=== PATIENT | male | born 1935 | race Two or more races ===

== ENCOUNTER 2017-07-07 13:25 | Inpatient (IN) | payer MEDICAID, OTHER ==
[~2017-07-07] VITALS: Ht 165.1 cm; Wt 57.2 kg
--- NOTE | 2017-07-07 13:35 | NUR ---
PATIENT WAS SENT TO ED BY MD PINEDA JOE HIGH BLOOD SUGAR-- 545MG/DL UPON CHECKING. PATIENT IS AAO4. APPEARS IN NO APPARENT DISTRESS. RESPIRATION EVEN AND UNLABORED. SKIN IS WARM TO TOUCH AND NON DIAPHORETIC. AFEBRILE. VSS
[2017-07-07 13:52] LABS: BASOPHILS # (AUTO) 0.1 /CMM (0.0-0.2); BASOPHILS % (AUTO) 1.3 % (0.0-2.0); EOSINOPHILS # (AUTO) 0.1 /CMM (0.0-0.7); EOSINOPHILS % (AUTO) 1.1 % (0.0-6.0); HEMATOCRIT 34 % (39-51); HEMOGLOBIN 11.2 g/dL (13.5-17.5); LYMPHOCYTES # (AUTO) 1.7 /CMM (0.8-4.8); LYMPHOCYTES % (AUTO) 33.7 % (20.0-44.0); MEAN CORPUSCULAR HEMOGLOBIN 29 PG (26.0-33.0); MEAN CORPUSCULAR HGB CONC 33 g/dl (31.0-36.0); MEAN CORPUSCULAR VOLUME 88 fL (80-96); MONOCYTES # (AUTO) 0.4 /CMM (0.1-1.30); MONOCYTES % (AUTO) 7.6 % (2.0-12.0); NEUTROPHILS # (AUTO) 2.8 /CMM (1.8-8.9); NEUTROPHILS % (AUTO) 56.3 % (43.0-81.0); PLATELET COUNT (AUTO) 263 /CMM (150-450); RDW COEFFICIENT OF VARIATION 12.8 (11.5-15.0); RED BLOOD CELL COUNT(AUTO) 3.83 MIL/uL (4.5-6.0); WHITE BLOOD COUNT (AUTO) 5.1 K/uL (4.3-11.0)
--- NOTE | 2017-07-07 13:52 | NUR ---
IV ACCESSED TO [facility]. BLOOD SAMPLE SEBT TO LAB
--- NOTE | 2017-07-07 13:53 | NUR ---
EKG IN PROGRESS
--- NOTE | 2017-07-07 13:53 | NUR ---
STARTED IV HYDRATION
[2017-07-07] MEDS ORDERED: IV NS 0.9% 1,000 ML BAG IV ONE (14:00)
[2017-07-07] MEDS ORDERED: CHOL500052 PO (14:02)
[2017-07-07] MEDS ORDERED: ASPI-991 PO (14:02)
[2017-07-07] MEDS ORDERED: ACET-2605 PO (14:02)
[2017-07-07] MEDS ORDERED: MAGN400T6 PO (14:02)
[2017-07-07] MEDS ORDERED: GABA-534 PO (14:02)
[2017-07-07] MEDS ORDERED: OMEP20TA68 PO (14:02)
[2017-07-07] MEDS ORDERED: CYAN10009 PO (14:02)
[2017-07-07] MEDS ORDERED: MIRT30TA PO (14:02)
[2017-07-07] MEDS ORDERED: ATOR20TA PO (14:02)
[2017-07-07 14:08] LABS: ALANINE AMINOTRANSFERASE 18 U/L (12-78); ALKALINE PHOSPHATASE 156 U/L (46-116); ASPARTATE AMINOTRANSFERASE 16 U/L (15-37); BILIRUBIN,DIRECT 0.1 mg/dL (0.0-0.2); BILIRUBIN,TOTAL 0.3 mg/dL (0.2-1.0); CALCIUM, SERUM 8.8 mg/dL (8.5-10.1); CARBON DIOXIDE 31 mmol/L (21-32); CHLORIDE 98 mmol/L (98-107); CREATININE 1.9 mg/dL (0.6-1.3); POTASSIUM 4.4 mmol/L (3.5-5.1); SODIUM SERUM 136 mmol/L (136-145); TOTAL PROTEIN, SERUM 8.1 g/dL (6.4-8.2); UREA NITROGEN, BLOOD 33 mg/dL (7-18)
[2017-07-07 14:10] LABS: GLUCOSE 604 mg/dL (74-106)
[2017-07-07] MEDS ORDERED: INSULIN REGULAR, HUMAN 100 UNIT/ML 10 ML VIAL SQ STA (14:30)
[2017-07-07] MEDS ORDERED: INSULIN REGULAR, HUMAN 100 UNIT/ML 10 ML VIAL ONE (14:47)
[2017-07-07 14:56] LABS: APPEARANCE,URINE Clear (CLEAR); BILIRUBIN,URINE Negative (NEGATIVE); BLOOD, URINE Trace-intact Ery/uL (NEGATIVE); COLOR,URINE Yellow (YELLOW); KETONES,URINE Negative (NEGATIVE); LEUKOCYTE ESTERASE ,URINE Trace (NEGATIVE); NITRITE, URINE Negative (NEGATIVE); PROTEIN,URINE Negative (NEGATIVE); UGLUCOSE 500 MG/DL mg/dL (NEGATIVE); UROBILINOGEN,URINE 0.2 EU/dL (0.2)
[2017-07-07 15:03] LABS: BACTERIA,URINE Few /HPF (None Seen); RBC,URINE 0-3 /HPF (0-2); SQUAMOUS EPITHELIAL CELL,UR Few /HPF (None Seen)
--- NOTE | 2017-07-07 15:30 | NUR ---
PAGED DR SUNG
--- NOTE | 2017-07-07 15:49 | NUR ---
SPOKE WITH MD SUNG AND NOTIFIED HIM OF PATIENT;S BLOOD SUGAR 561MG/DL. PER MD HE WILL REVIEW PT'S LABS.MD GAVE ADMISSION ORDERS.
--- NOTE | 2017-07-07 16:31 | NUR ---
AWAITING FOR BED.
[2017-07-07 17:10] VITALS: BP 120/69
--- NOTE | 2017-07-07 17:11 | NUR ---
admit to the floor; accepted by Dr. Palma
--- NOTE | 2017-07-07 17:15 | NUR ---
TUBE CLOSING MACHINE OPERATOR: ADMISSION NOTE RECEIVED PT FROM ER. A/OX3 ADMITTED TO ROOM 328-2. CAME FROM HOME LIVING WITH OTHER PEOPLE. ADMITTED WITH DIAGNOSIS OF HYPERGLYCEMIA. HX OF DM, DEPRESSION, HTN, GERD. ONLY TAJIK SPEAKING. ON TELE MONITOR SR AT 70BPM. VS STABLE. BP120/69, PULSE 70, O2 100% ON ROOM AIR, RR20, TEMPERATURE 98.0. SKIN INTACT. IV ON R AC RUNNING NS AT 75ML/HR. SITE CLEAR AND PATENT. BG ON ADMISSION TO FLOOR WAS 246, 6 UNITS GIVEN PER SLIDING SCALE. MRSA SCREENING DONE. ON [facility] DIET. ALL ORDERS PLACED ORDERED PER MD. NO DISTRESS NOTED. NO PAIN NOTED. NO SOB NOTED. NO S/S OF HYPERGLYCEMIA NOTED. ORDERS TO CONTINUE HOME MEDICATIONS. ATE DINNER WITH NO N/V NOTED. RESTING COMFORTABLY IN BED. CALL LIGHT WITHIN REACH.
[2017-07-07] MEDS ORDERED: INSULIN DETEMIR 100 UNIT/ML CARTRIDGE SQ SCH (17:30)
[2017-07-07] MEDS ORDERED: IV NS 0.9% 1,000 ML BAG IV SCH (17:30)
[2017-07-07] MEDS ORDERED: DEXTROSE 50%-WATER 50 ML DISP.SYRIN IV PRN (17:30)
[2017-07-07 18:00] VITALS: BP 120/69
[2017-07-07] MEDS: IV NS 0.9% 1,000 ML IV PRN (18:17)
[2017-07-07] MEDS: INSULIN REGULAR, HUMAN 100 UNIT/ML 3 ML VIAL SQ PRN (18:26)
[2017-07-07] MEDS: BLOOD SUGAR DIAGNOSTIC 1 EACH STRIP VI SCH ×2 (18:27→22:36)
--- NOTE | 2017-07-07 18:45 | NUR ---
HONEY PRODUCER: CLOSING NOTE PT A/OX3. NO DISTRESS NOTED. NO PAIN NOTED. NO SOB NOTED. IV ON R AC RUNNING NS AT 75ML/HR. SITE CLEAR AND PATENT. NO REDNESS OR BLEEDING NOTED. ON CCHO DIET. NO N/V NOTED. CONTINENT AND ABLE TO AMBULATE WITH WALKER. RESTING COMFORTABLY IN BED. CALL LIGHT WITHIN REACH. NO CHANGES IN CONDITION NOTED.
--- NOTE | 2017-07-07 19:40 | NUR ---
RN OPENING NOTES RECEIVED REPORT FROM ASHLEIGH JAVED. FOUND Pt AWAKE RESTING IN BED. NO S/S OF ACUTE DISTRESS OR SOB NOTED. Pt IS A/OX3, LATVIAN SPEAKING, BUT CAN UNDERSTAND SOME [place]TH KOREAN. NO C/O PAIN AT THIS TIME. IV ACCESS ON RAC #20G, NS @75ML/HR. SAFETY MEASURES IN PLACE. BED LOW, LOCKED, HOB ELEVATED, SIDE RAILS UP, CALL LIGHT AND BEDSIDE WITHIN REACH. WILL CONTINUE TO MONITOR Pt THROUGHOUT THE NIGHT FOR SAFETY.
[2017-07-07 20:00] VITALS: BP 93/51
[2017-07-07] MEDS: INSULIN DETEMIR 100 UNIT/ML CARTRIDGE SQ SCH (21:00)
[2017-07-07] MEDS ORDERED: BLOOD SUGAR DIAGNOSTIC 1 EACH STRIP IN SCH (22:00)
[2017-07-07] MEDS: MIRTAZAPINE 15 MG TABLET PO SCH (22:40)
[2017-07-07] MEDS: GABAPENTIN 300 MG CAPSULE PO SCH (22:40)
[2017-07-07] MEDS: ATORVASTATIN 10 MG TABLET PO SCH (22:40)
--- NOTE | 2017-07-07 22:45 | NUR ---
ACCUCHECK BG 100. NO INSULIN COVERAGE NEEDED AT THIS TIME. HELD LEVEMIR OF 9UN.
[2017-07-08] VITALS: BP 99/53
[2017-07-08 04:00] VITALS: BP 114/59
--- NOTE | 2017-07-08 06:30 | NUR ---
ACCUCHECK BG 198. ADMINISTERED 3UN OF INSULIN PER SLIDING SCALE.
--- NOTE | 2017-07-08 06:55 | NUR ---
RN CLOSING NOTES NO SIGNIFICANT CHANGES NOTED DURING THE SHIFT. ALL NEEDS MET AND ATTENDED TO. NO S/S OF ACUTE DISTRESS OR SOB NOTED DURING THE NIGHT. SAFETY MEASURES IN PLACE. WILL ENDORSE TO DAYSHIFT RN FOR Pt's LAUREN. TELE READING SR 66.
[2017-07-08] MEDS: BLOOD SUGAR DIAGNOSTIC 1 EACH STRIP VI SCH ×4 (06:59→21:44)
[2017-07-08] MEDS: INSULIN REGULAR, HUMAN 100 UNIT/ML 3 ML VIAL SQ PRN ×2 (07:02→21:40)
[2017-07-08 07:18] VITALS: BP 114/59
--- NOTE | 2017-07-08 08:00 | NUR ---
GRAVURE PRESS OPERATOR NOTES PT IS SLEEPING COMFORTABLY IN BED. NO APPARENT S/S OF PAIN. TELE MONITORED SINUS RHYTHM 66. CALL LIGHT WITHIN REACH.
[2017-07-08] MEDS ORDERED: METFORMIN 500 MG TABLET PO SCH (09:00)
[2017-07-08] MEDS: MAGNESIUM OXIDE 400 MG TABLET PO SCH (09:00)
[2017-07-08] MEDS: ASPIRIN EC 81 MG TABLET.DR PO SCH (09:00)
[2017-07-08] MEDS: CYANOCOBALAMIN 500 MCG TABLET PO SCH (09:00)
[2017-07-08] MEDS: PANTOPRAZOLE 40 MG TABLET.DR PO SCH (09:01)
[2017-07-08] MEDS: INSULIN DETEMIR 100 UNIT/ML CARTRIDGE SQ SCH ×2 (09:03→21:38)
[2017-07-08 12:00] VITALS: BP 120/63
[2017-07-08] MEDS: *INSULIN REGULAR(HUMULIN R)HUM 100 UNIT/ML VIAL SQ PRN ×2 (12:10→18:13)
[2017-07-08 16:00] VITALS: BP 117/56
--- NOTE | 2017-07-08 18:54 | NUR ---
RN CLOSING NOTES PT RESTING IN BED. AMBULATES WELL WITH STEADY GAIT AROUND UNIT. BLOOD GLUCOSE 143 AT 1630. PT UNDERSTANDS PLAN OF CARE. PT TOLERATING IV FLUID WELL. NS 75ML/HR. PT COMFORTABLE AND CALM. NO APPARENT S/S OF PAIN. CALL LIGHT WITHIN REACH.
[2017-07-08 20:00] VITALS: BP 121/66
--- NOTE | 2017-07-08 20:00 | NUR ---
RECEIVED PATIENT IN BED, RESTING COMFORTABLY, VSS, AFEBRILE DENIES PAIN. CALL LIGHT WITHIN REACH, INSTRUCTED TO CALL FOR ASSISTANCE
--- NOTE | 2017-07-08 21:30 | NUR ---
ACCU CHECK IS 193 AT THIS TIME - COVERAGE GIVEN ORDERED. CONTINUE TO MONITOR
[2017-07-08] MEDS: IV NS 0.9% 1,000 ML IV PRN (21:33)
[2017-07-08] MEDS: GABAPENTIN 300 MG CAPSULE PO SCH (21:33)
[2017-07-08] MEDS: MIRTAZAPINE 15 MG TABLET PO SCH (21:34)
[2017-07-08] MEDS: ATORVASTATIN 10 MG TABLET PO SCH (21:34)
--- NOTE | 2017-07-08 23:25 | NUR ---
MS/BASIN FINISH OPERATOR TIG WELDER; RECEIVED PT 'S REPORT FROM THE RNJOSIANE FOR CONTINUITY OF CARE. AT THIS TIME PT IN BED SLEEPING. BREATHING NON LABORED AND EVEN. IVF ON PROGRESS. BED ON LOWER POSITION AND LOCKED FOR SAFETY. SIDE RAILS ARE UP FOR SAFETY. WILL CONTINUE TO MONITOR. CALL LIGHT WITHIN REACH. WILL CONTINUE TO MONITOR.
--- NOTE | 2017-07-09 06:00 | NUR ---
MS/REPAIRER SCREEN CRUSHER; BS 90 NO COVERAGE.
[2017-07-09] MEDS: BLOOD SUGAR DIAGNOSTIC 1 EACH STRIP VI SCH ×4 (06:05→21:21)
--- NOTE | 2017-07-09 06:31 | NUR ---
MS/CLINICAL REIMBURSEMENT SPECIALIST; SLEPT AT GOOD INTERVALS LAST NIGHT. DENIES PAIN. BREATHING NON LABORED. IIVF ON PROGRESS. WILL ENDORSE TO THE DAY SHIFT NURSE.
[2017-07-09 07:23] LABS: CALCIUM, SERUM 8.8 mg/dL (8.5-10.1); CARBON DIOXIDE 26 mmol/L (21-32); CHLORIDE 107 mmol/L (98-107); CREATININE 1.5 mg/dL (0.6-1.3); GLUCOSE 92 mg/dL (74-106); POTASSIUM 3.6 mmol/L (3.5-5.1); SODIUM SERUM 142 mmol/L (136-145); UREA NITROGEN, BLOOD 28 mg/dL (7-18)
--- NOTE | 2017-07-09 07:30 | NUR ---
MS RN AM NOTES PT IN BED, ASLEEP, EASILY AWAKEN TO NAME AND TOUCH, AO X 3, CYMRAES SPEAKING, ON RA, NOT IN ANY DISTRESS, RTAC G20 WITH NS AT 75 ML/HR. SITE CLEAR. DENIES PAIN, AMBULATES WITH ASSIST.BED ON LOWER POSITION AND LOCKED FOR SAFETY. SIDE RAILS ARE UP FOR SAFETY. CALL LIGHT WITHIN REACH. WILL CONTINUE TO MONITOR.
[2017-07-09 08:00] VITALS: BP_SYST 128; BP_SYST 138; BP_DIAS 68
[2017-07-09] MEDS: PANTOPRAZOLE 40 MG TABLET.DR PO SCH (09:24)
[2017-07-09] MEDS: MAGNESIUM OXIDE 400 MG TABLET PO SCH (09:25)
[2017-07-09] MEDS: CYANOCOBALAMIN 500 MCG TABLET PO SCH (09:25)
[2017-07-09] MEDS: ASPIRIN EC 81 MG TABLET.DR PO SCH (09:25)
[2017-07-09] MEDS: INSULIN DETEMIR 100 UNIT/ML CARTRIDGE SQ SCH ×2 (09:28→21:20)
--- NOTE | 2017-07-09 09:30 | NUR ---
MS RN NOTES ADMINISTERED DUE MEDS.
--- NOTE | 2017-07-09 11:55 | NUR ---
MS RN NOTES ACCUCHECK. BS 247 MG/DL. ADMINISTERED 9 UNITS HUM R PER SLIDING SCALE.
[2017-07-09] MEDS: INSULIN REGULAR, HUMAN 100 UNIT/ML 3 ML VIAL SQ PRN (11:57)
[2017-07-09 16:00] VITALS: BP 130/70
--- NOTE | 2017-07-09 17:37 | NUR ---
MS RN NOTES ACCUCHECK. BS 92 MG/DL. NO INSULIN COVERAGE GIVEN AT THIS TIME.
[2017-07-09] MEDS: IV NS 0.9% 1,000 ML IV PRN (17:43)
[2017-07-09 18:00] VITALS: BP 130/70
--- NOTE | 2017-07-09 18:37 | NUR ---
MS RN AM NOTES PT IN BED, RESTING COMFORTABLY, AO X 3, NEPALI SPEAKING, ON RA, NOT IN ANY DISTRESS, RT AC G20 WITH NS AT 75 ML/HR. SITE CLEAR. DENIES PAIN, AMBULATES WITH ASSIST.BED ON LOWER POSITION AND LOCKED FOR SAFETY. SIDE RAILS ARE UP FOR SAFETY. CALL LIGHT WITHIN REACH. PM CARE DONE. ALL NEEDS MET. NO OTHER SIGNIFICANT CHANGE IN CONDITION. WILL ENDORSE TO NEXT SHIFT FOR LAUREN. SEEN BY DR. SUNG EARLIER. NO NEW ORDERS.
[2017-07-09 20:00] VITALS: BP 131/72
--- NOTE | 2017-07-09 20:00 | NUR ---
MS RN NOTES RECEIVED PATIENT RESTING IN BED, DENIES PAIN. NO ACUTE DISTRESS, ON RA, NO SOB. AMBULATORY WITH WALKER TOLERATED. MALTESE SPEAKING. A & O X 3. IV ACCESS TO RAC, INTACT PATENT. NO S/S OF INFECTION NOTED AT IV SITE. CALL LIGHT WITHIN REACH. BED IN LOW LOCKED POSITION. NO S/S OF HYPERGLYCEMIA NOTED. WILL CONTINUE TO MONITOR.
[2017-07-09] MEDS: ATORVASTATIN 10 MG TABLET PO SCH (21:18)
[2017-07-09] MEDS: MIRTAZAPINE 15 MG TABLET PO SCH (21:18)
[2017-07-09] MEDS: GABAPENTIN 300 MG CAPSULE PO SCH (21:18)
[2017-07-09] MEDS: *INSULIN REGULAR(HUMULIN R)HUM 100 UNIT/ML VIAL SQ PRN (21:22)
--- NOTE | 2017-07-10 01:15 | NUR ---
MS RN NOTES PATIENT SLEEPING COMFORTABLY IN BED IN [place]I [place] POSITION. NS IV RUNNING AT 75 ML/HR. NO LAUREN NOTED.
[2017-07-10 04:00] VITALS: BP 137/63
--- NOTE | 2017-07-10 06:15 | NUR ---
MS RN NOTES PATIENT SLEPT WELL AT NIGHT WITHOUT ANY COMPLICATIONS. NO C/O PAIN, NO DISTRESS/DISCOMFORT NOTED. NO EPISODE OF HYPERGLYCEMIA NOTED. NS RUNNING AT 75 ML/HR. IV SITE TO RAC INTACT & PATENT. AMBULATED TO THE RESTROOM WITH 3WW TOLERATED. ALL NEEDS MET. BED IN LOW LOCKED POSITION. CALL LIGHT WITHIN REACH. WILL ENDORSE TO AM SHIFT.
[2017-07-10] MEDS: BLOOD SUGAR DIAGNOSTIC 1 EACH STRIP VI SCH ×4 (07:49→21:15)
[2017-07-10 08:00] VITALS: BP 139/77
--- NOTE | 2017-07-10 08:00 | NUR ---
RN MS OPENING NOTES RECEIVED PATIENT IN STABLE CONDITION. PATIENT IS IN NO APPARENT DISTRESS. ALERT AND ORIENTED X3. BEDSIDE RAILS ARE UP X2. BED IS LOCKED AND LOWERED. IV ON RIGHT AC INTACT AND PATENT. WILL CONTINUE TO MONITOR.
[2017-07-10] MEDS: CYANOCOBALAMIN 500 MCG TABLET PO SCH (08:36)
[2017-07-10] MEDS: LINAGLIPTIN 5 MG TABLET PO SCH (08:36)
[2017-07-10] MEDS: ASPIRIN EC 81 MG TABLET.DR PO SCH (08:36)
[2017-07-10] MEDS: PANTOPRAZOLE 40 MG TABLET.DR PO SCH (08:37)
[2017-07-10] MEDS: MAGNESIUM OXIDE 400 MG TABLET PO SCH (08:37)
[2017-07-10] MEDS: INSULIN DETEMIR 100 UNIT/ML CARTRIDGE SQ SCH ×2 (08:41→21:12)
[2017-07-10] MEDS: INSULIN REGULAR, HUMAN 100 UNIT/ML 3 ML VIAL SQ PRN (12:09)
[2017-07-10 16:00] VITALS: BP 143/72
[2017-07-10] MEDS: *INSULIN REGULAR(HUMULIN R)HUM 100 UNIT/ML VIAL SQ PRN ×2 (17:46→21:14)
--- NOTE | 2017-07-10 18:29 | NUR ---
MS RN CLOSING NOTES PT IS RESTING IN BED. PT IS ALERT AND ORIENTED. NO DISTRESS NOTED. BEDSIDE RAILS ARE UP X2. BED IS LOCKED AND LOWERED. WILL ENDORSE CARE TO WIG STYLIST NURSE FOR LAUREN.
--- NOTE | 2017-07-10 19:50 | NUR ---
RN INITIAL NOTES: RECEIVED REPORT FROM BRYANT AVINA PT IN BED, AWAKE, A/O X3 CENTRAL AFRICAN SPEAKING, ON TRA RESPIRATION EVEN AND UNLABORED DENIES ANY PAIN AT THIS TIME. PT REFUSED SCD, RIGHT AC IV ACCES PATENT AND FLUSHING WELL, ON HL. SAFETY PRECAUTIONS FOR FALL INITIATED CALL LIGHT IN REACH, WILL CONTINUE TO MONITOR
--- NOTE | 2017-07-10 19:55 | NUR ---
RN NOTES: PER RN REPORT PT FOR DC BUT STILL AWAITING FOR DR SUNG'S RESPONSE IF OKAY TO BE DC TONIGHT, AMBULANCE ON WILL CALL.
[2017-07-10 20:00] VITALS: BP 115/64
[2017-07-10] MEDS: ACETAMINOPHEN ES 500 MG TABLET PO PRN (20:17)
--- NOTE | 2017-07-10 20:17 | NUR ---
PRN TYLENOL: PT REQUESTED PAIN MEDICINE FOR LEG PAIN 12/12, PRN TYLENOL ES 500 MG TAB PO ADMINISTERED TO THE PT AT THIS TIME. WILL CONTINUE TO MONITOR AND REASSESS
[2017-07-10] MEDS: ATORVASTATIN 10 MG TABLET PO SCH (21:15)
[2017-07-10] MEDS: GABAPENTIN 300 MG CAPSULE PO SCH (21:15)
--- NOTE | 2017-07-10 21:16 | NUR ---
ACCU CHECK: BLOOD SUGAR CHECKED AND REVEAL 151, 2UNITS OF INSULIN GIVEN PER SLIDING SCALE
[2017-07-10] MEDS: MIRTAZAPINE 15 MG TABLET PO SCH (21:23)
--- NOTE | 2017-07-10 22:30 | NUR ---
RN NOTES: PER DYEING MACHINE BACK TENDER MARQUEZ, PT'S DC GOT CANCELLED BECAUSE [facility] CANCELLED PT'S ACCEPTANCE FOR FACILITY
[2017-07-11] MEDS: BLOOD SUGAR DIAGNOSTIC 1 EACH STRIP VI SCH ×4 (06:18→21:41)
[2017-07-11] MEDS: INSULIN REGULAR, HUMAN 100 UNIT/ML 3 ML VIAL SQ PRN ×2 (06:19→13:24)
--- NOTE | 2017-07-11 06:19 | NUR ---
ACCU CHECK: BLOOD SUGAR CHECKED AND REVEAL 94, NO INSULIN COVERAGE GIVEN PER SLIDING SCALE, WILL MONITOR PT FOR ANY S/S OF HYPOGLYCEMIA OR HYPERGLYCEMIA
--- NOTE | 2017-07-11 06:48 | NUR ---
RN CLOSING NOTES: PT IN BED, AWAKE, REMAINS A/O X3, ON RA RESPIRATION EVEN AND UNLABORED, RIGHT AC IV ACCESS REMAINS PATENT AND FLUSHING WELL, ON HL. FOR POSSIBLE DC, AWAITING PLACEMENT. VS REMAINS STABLE,NEEDS ATTENDED.SAFETY PRECAUTIONS FOR FALL REMAINS ENGAGED, CALL LIGHT IN REACH, WILL ENDORSE TO DAY RN FOR LAUREN.
--- NOTE | 2017-07-11 07:45 | NUR ---
MS/RN OPENING NOTE PATIENT RECEIVED IN BED IN STABLE CONDITION. A/O X 3. ETHIOPIAN SPEAKING. NO SIGNS OF ACUTE DISTRESS. NO COMPLAIN OF PAIN OR DISCOMFORT. ALL NEEDS ATTENDED TO AT THIS TIME. CALL LIGHT WITHIN REACH. WILL CONTINUE TO MONITOR TO ENSURE SAFETY.
[2017-07-11 08:00] VITALS: BP 127/59
[2017-07-11] MEDS: MAGNESIUM OXIDE 400 MG TABLET PO SCH (08:36)
[2017-07-11] MEDS: ASPIRIN EC 81 MG TABLET.DR PO SCH (08:36)
[2017-07-11] MEDS: CYANOCOBALAMIN 500 MCG TABLET PO SCH (08:37)
[2017-07-11] MEDS: ERGOCALCIFEROL (VITAMIN D 2) 50,000 UNIT CAPSULE PO SCH ×2 (08:37→08:47)
[2017-07-11] MEDS: LINAGLIPTIN 5 MG TABLET PO SCH (08:37)
[2017-07-11] MEDS: PANTOPRAZOLE 40 MG TABLET.DR PO SCH (08:37)
[2017-07-11] MEDS: INSULIN DETEMIR 100 UNIT/ML CARTRIDGE SQ SCH ×2 (08:38→21:37)
--- NOTE | 2017-07-11 15:00 | NUR ---
MS/RN SEEN BY DR SUNG PATIENT SEEN BY DR SUNG WITH NO ORDERS AT THIS TIME.
[2017-07-11 16:00] VITALS: BP 156/73
--- NOTE | 2017-07-11 18:05 | NUR ---
MS/RN CLOSING NOTE PATIENT IN BED IN STABLE CONDITION. A/O X 3. NO SIGNS OF ACUTE DISTRESS. NO COMPLAIN OF PAIN OR DISCOMFORT. ALL NEEDS ATTENDED TO. CALL LIGHT WITHIN REACH. WILL ENDORSE TO NEXT SHIFT FOR CONTINUITY OF CARE.
--- NOTE | 2017-07-11 19:30 | NUR ---
RN NOTES RECEIVED PATIENT IN BED AWAKE, AO X 3, ABLE TO MAKE NEEDS KNOWN. NO ACUTE DISTRESS NOTED; DENIES ANY PAIN AT THIS TIME. NO SYMPTOMS OF HYPER/HYPOGLYCEMIA. IV SITE PATENT, INTACT; FLUSHED. SAFETY REMINDERS GIVEN. ON LOW BED WITH BILATERAL UPPER SIDE RAILS UP. CALL LIGHT WITHIN EASY REACH. WILL CONTINUE TO MONITOR.
[2017-07-11 20:00] VITALS: BP 140/58
[2017-07-11] MEDS: GABAPENTIN 300 MG CAPSULE PO SCH (21:40)
[2017-07-11] MEDS: MIRTAZAPINE 15 MG TABLET PO SCH (21:41)
[2017-07-11] MEDS: *INSULIN REGULAR(HUMULIN R)HUM 100 UNIT/ML VIAL SQ PRN (21:45)
[2017-07-11] MEDS: ATORVASTATIN 10 MG TABLET PO SCH (21:47)
[2017-07-12] MEDS: ACETAMINOPHEN ES 500 MG TABLET PO PRN (00:49)
[2017-07-12] MEDS: BLOOD SUGAR DIAGNOSTIC 1 EACH STRIP VI SCH ×4 (06:38→21:51)
--- NOTE | 2017-07-12 07:14 | NUR ---
RN NOTES PATIENT ASLEEP, EASILY AROUSABLE. RESPIRATIONS EVEN. NO SIGNS OF PAIN NOTED. DUE MEDS GIVEN WITH NO ASE NOTED. NEEDS ATTENDED. KEPT CLEAN AND DRY. SAFETY PRECAUTIONS AND COMFORT MEASURES IN PLACE. WILL GIVE REPORT TO DAY SHIFT FOR CONTINUITY OF CARE.
--- NOTE | 2017-07-12 07:33 | NUR ---
MS/RN OPENING NOTE PATIENT RECEIVED IN BED IN STABLE CONDITION. A/O X 4. NO SIGNS OF ACUTE DISTRESS. NO COMPLAIN OF PAIN OR DISCOMFORT. ALL NEEDS ATTENDED TO. CALL LIGHT WITHIN REACH. WILL CONTINUE TO MONITOR TO ENSURE SAFETY.
[2017-07-12 08:00] VITALS: BP 117/61
[2017-07-12] MEDS: LINAGLIPTIN 5 MG TABLET PO SCH (08:31)
[2017-07-12] MEDS: MAGNESIUM OXIDE 400 MG TABLET PO SCH (08:31)
[2017-07-12] MEDS: CYANOCOBALAMIN 500 MCG TABLET PO SCH (08:31)
[2017-07-12] MEDS: ASPIRIN EC 81 MG TABLET.DR PO SCH (08:31)
[2017-07-12] MEDS: PANTOPRAZOLE 40 MG TABLET.DR PO SCH (08:31)
[2017-07-12] MEDS: INSULIN DETEMIR 100 UNIT/ML CARTRIDGE SQ SCH ×2 (08:34→21:00)
[2017-07-12] MEDS: INSULIN REGULAR, HUMAN 100 UNIT/ML 3 ML VIAL SQ PRN (13:16)
[2017-07-12 16:00] VITALS: BP 105/54
--- NOTE | 2017-07-12 16:00 | NUR ---
MS/RN SEEN BY DR SUNG PATIENT SEEN BY DR SUNG WITH NO NEW ORDERS AT THIS TIME. AWAITING FOR SNF PLACEMENT.
--- NOTE | 2017-07-12 18:19 | NUR ---
MS/RN CLOSING NOTE PATIENT IN BED IN STABLE CONDITION. A/O X 4. NO SIGNS OF ACUTE DISTRESS. NO COMPLAIN OF PAIN OR DISCOMFORT. ALL NEEDS ATTENDED TO. CALL LIGHT WITHIN REACH. WILL ENDORSE TO NEXT SHIFT FOR CONTINUITY OF CARE.
--- NOTE | 2017-07-12 19:50 | NUR ---
MS RN INITIAL NOTES PT IS IN BED A/O X3, [place] SPEAKING. NO SIGNS OF SOB OR DISTRESS. BREATHING EVENLY AND UNLABORED ON RA. IV ACCESS INTACT AND PATENT. PT AMBULATES WITH WALKER, STEADY GAIT. BED IS IN LOW AND LOCKED POSITION, CALL LIGHT WITHIN REACH. WILL CONTINUE TO MONITOR PT
[2017-07-12 20:00] VITALS: BP 136/75
[2017-07-12] MEDS: MIRTAZAPINE 15 MG TABLET PO SCH (21:51)
[2017-07-12] MEDS: ATORVASTATIN 10 MG TABLET PO SCH (21:51)
[2017-07-12] MEDS: GABAPENTIN 300 MG CAPSULE PO SCH (21:51)
--- NOTE | 2017-07-12 22:00 | NUR ---
INSULIN PT BG IS 174- REFUSES INSULIN, REFUSES SNACKS. EDUCATION WAS GIVEN ON HYPER/HYPO GLYCEMIA. WILL CONTINUE TO MONITOR PT
[2017-07-13] MEDS: BLOOD SUGAR DIAGNOSTIC 1 EACH STRIP VI SCH ×3 (06:26→17:34)
--- NOTE | 2017-07-13 06:53 | NUR ---
MS RN CLOSING NOTES PT IS IN BED A/O X3. NO SIGNS OF SOB OR DISTRESS. PT REFUSED INSULIN THIS MORNING, EDUCATION WAS GIVEN. STILL PENDING PLACEMENT. WILL ENDORSE TO DAY SHIFT
[2017-07-13 08:00] VITALS: BP 138/71
--- NOTE | 2017-07-13 08:00 | NUR ---
MS RN NOTES PATIENT IN BED RESTING NO SOB OR ACUTE DISTRESS NOTED. BED IN LOW LOCKED POSITION. PERIPHERAL IV INTACT PATENT. CALL LIGHT WITHIN REACH WILL CONTINUE TO MONITOR.
[2017-07-13] MEDS: ASPIRIN EC 81 MG TABLET.DR PO SCH (08:59)
[2017-07-13] MEDS: CYANOCOBALAMIN 500 MCG TABLET PO SCH (08:59)
[2017-07-13] MEDS: MAGNESIUM OXIDE 400 MG TABLET PO SCH (08:59)
[2017-07-13] MEDS: LINAGLIPTIN 5 MG TABLET PO SCH (08:59)
[2017-07-13] MEDS: PANTOPRAZOLE 40 MG TABLET.DR PO SCH (09:03)
[2017-07-13] MEDS: INSULIN DETEMIR 100 UNIT/ML CARTRIDGE SQ SCH (09:11)
--- NOTE | 2017-07-13 12:00 | NUR ---
MS RN NOTES PATIENT SEEN AND EVALUATED BY DR. SUNG ORDERS NOTED AND CARRIED OUT.
[2017-07-13] MEDS: INSULIN REGULAR, HUMAN 100 UNIT/ML 3 ML VIAL SQ PRN (12:01)
[2017-07-13 16:00] VITALS: BP 103/62
--- NOTE | 2017-07-13 19:15 | NUR ---
MS RN NOTES PATIENT DISCHARGED TO [facility] FACILITY IN STABLE CONDITION. VS WNL. REPORT GIVEN TO TONY AVINA, PROVIDED WITH DISCHARGE INSTRUCTIONS TO PATIENT WITH HELP OF COMPLEX MANAGER. ALL BELONGINGS ACCOUNTED FOR. BELONGING LIST SIGNED. AWARE OF ALL ABNORMAL LABS. IV REMOVED WITH MINIMAL BLEEDING. ID BAND ALSO REMOVED. PATIENT REFUSED VACCINES. PATIENT TRANSPORTED VIA AMBULANCE WITH EMT.
== END 2017-07-13 19:40 | DRG 469 ==
LOC: ER 13:28 → TELE 16:51 → MED 07-08 13:41
PROVIDERS: ADMIT Internal Medicine; ATTEND Internal Medicine
DX: N17.0 Acute kidney failure with tubular necrosis (principal); E46 Unspecified protein-calorie malnutrition; E11.65 Type 2 diabetes mellitus with hyperglycemia; E11.40 Type 2 diabetes mellitus with diabetic neuropathy, unspecified; I48.0 Paroxysmal atrial fibrillation; I10 Essential (primary) hypertension; I51.81 Takotsubo syndrome; I25.10 Atherosclerotic heart disease of native coronary artery without angina pectoris; K21.9 Gastro-esophageal reflux disease without esophagitis; Z87.01 Personal history of pneumonia (recurrent); Z68.21 Body mass index [BMI] 21.0-21.9, adult
CPT/HCPCS: 36415; 80048-TC; 80076-TC; 81000-TC; 82962-TC; 85025-TC; 87081-TC; 87086-TC; A4606; J1815; J7030; Z7610